=== PATIENT | male | born 2000 | race Caucasian/White ===

== ENCOUNTER 2019-11-04 07:39 | Outpatient (CLI) | payer OTHER, SELFPAY ==
[2019-11-07 16:09] LABS: Patient Race White; SARS-CoV-2 RNA Undetected (Undetected); SARS-CoV-2 Specimen Source Nasopharynx
== END 2019-11-04 07:59 ==
PROVIDERS: Visit Provider Nurse Practitioner Family
DX: J06.9 Acute upper respiratory infection, unspecified (principal)
CPT/HCPCS: U0003

== ENCOUNTER 2020-08-20 20:08 | Emergency (ER) | payer OTHER, SELFPAY ==
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
[2020-08-20] MEDS: oxyCODONE 5 mg/Acetaminophen 325 mg TAB 1 TAB PO (20:56)
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
[2020-08-20] MEDS: AMPICILLIN/SULBACTAM 3 GM in Normal Saline 100 ML IVPB (22:57)
[2020-08-20] MEDS: Lidocaine/Epinephri/Tetracaine Topical Gel 3 ML (23:08)
[2020-08-20 23:40] VITALS: BP 138/75; PULSE 89; RESP 16; TEMP 36.9; O2SAT 98
[2020-08-20] MEDS: Amox. 875/Clav. 125, 2 TABS/BTL 1 TAB PO (23:50)
== END 2020-08-20 23:58 | disposition home or self-care (01) ==
PROVIDERS: Emergency Provider Physician Assistant
DX: S62.332A Displaced fracture of neck of third metacarpal bone, right hand, initial encounter for closed fracture (principal); W34.00XA Accidental discharge from unspecified firearms or gun, initial encounter
CPT/HCPCS: 29125; 96365; 99284; 73130; 99283; J0295

== ENCOUNTER 2021-04-25 01:38 | Outpatient (CLI) | payer OTHER, SELFPAY ==
--- NOTE | 2021-04-25 08:05 | DI.RAD_ITS ---
Exam(s) XR KNEE RT 3V AP,LAT,LOBO EXAM: XR KNEE RT 3V AP,LAT,LOBO CLINICAL HISTORY: knee pain, right - chronic - no known injury,[id number]. TECHNIQUE: 2D digital imaging was performed. COMPARISON: No exams were available for comparison FINDINGS: 3 views No evidence of fracture or prominent joint effusion. No osteochondral defects. No joint space narro wing nor osteophytes. Bone density normal. No osseous lesions. IMPRESSION: No significant radiographic findings. DATA REPOSITORY: RADIATION DOSE DELIVERED:
== END 2021-04-25 01:58 ==
DX: M25.561 Pain in right knee (principal)
CPT/HCPCS: 73562

== ENCOUNTER 2022-06-13 01:17 | Outpatient (CLI) | payer OTHER, SELFPAY ==
[2022-06-13 12:35] LABS: ALT 55 U/L (16-63); AST 28 U/L (15-37); Albumin 4.2 g/dL (3.4-5.0); Alkaline Phosphatase 70 U/L (46-116); BUN 12 mg/dL (7-18); Bilirubin, Total 0.6 mg/dL (0.2-1.0); Calcium 8.8 mg/dL (8.5-10.1); Calculated LDL 146 mg/dL (<100); Chloride 103 mmol/L (98-107); Cholesterol 235 mg/dL (<200); Estimated GFR 107.78 (mL/min/1.73m2); Glucose 112 mg/dL (74-106); HDL Cholesterol 66 mg/dL (40-60); Potassium 3.6 mmol/L (3.5-5.1); Sodium 141 mmol/L (136-145); TSH (W/Ref FT4) 1.58 uIU/mL (0.36-3.74); Total Protein 7.7 g/dL (6.4-8.2); Triglyceride 115 mg/dL (<150)
[2022-06-13 12:45] LABS: Hemoglobin A1C 5.3 % (<5.7)
== END 2022-06-13 01:18 | disposition home or self-care (01) ==
LOC: LOS 01:18
PROVIDERS: PCP Nurse Practitioner Family; Visit Provider Nurse Practitioner Family
DX: Z00.00 Encounter for general adult medical examination without abnormal findings (principal); E78.49 Other hyperlipidemia
CPT/HCPCS: 36415; 80053; 80061; 83036; 84443

== ENCOUNTER 2024-12-12 03:45 | Outpatient (CLI) | payer SELFPAY ==
[2024-12-12 15:38] LABS: Cholesterol 244 mg/dL (<200); HDL Cholesterol 60 mg/dL (>or=40)
[2024-12-12 16:08] LABS: Hemoglobin A1C 5.5 % (<5.7)
== END 2024-12-12 03:46 | disposition home or self-care (01) ==
LOC: LOS 03:45
PROVIDERS: PCP Nurse Practitioner Family; Visit Provider Nurse Practitioner Family
DX: Z13.220 Encounter for screening for lipoid disorders (principal); Z13.1 Encounter for screening for diabetes mellitus
CPT/HCPCS: 36415; 80061; 83036